=== PATIENT | male | born 1965 | race Caucasian/White ===

== ENCOUNTER 2016-10-15 10:33 | Emergency (ER) | payer SELFPAY ==
[~2016-10-15] VITALS: Ht 180.3 cm; Wt 117.9 kg
[~2016-10-15 10:33] MED LIST: AUGMENTIN 875 M1 TAB PO; BIAXIN500 MG PO; COMPAZINE10 MG PO; DAYPRO600 M1 PO; FLAGYL500 MG PO; FLEXERIL10 MG PO; PAXIL20 MG PO; ROBAXIN750 MG PO; SKELAXIN800 MG PO; TOPROL XL50 MG PO; TRAMADOL HCL50 MG PO; ULTRAM50 MG PO; VICODIN ES 7501 TAB PO; VOLTAREN75 MG PO; ZITHROMAX Z PA250 MG PO; ZYRTEC10 MG PO
[2016-10-15 11:15] LABS: BASO % 0.6 % (0.0-1.0); EOS # 0.2 10*3/uL (0.0-0.4); EOS % 4.7 % (1.0-4.0); HEMATOCRIT 48.7 % (42.0-52.0); HEMOGLOBIN 16.5 g/dl (14.0-18.0); LYMPH # 2.2 10*3/uL (1.3-4.4); LYMPH % 42.9 % (27.0-41.0); MEAN CELL VOLUME 86.2 fl (80.0-94.0); MEAN CORPUSCULAR HGB 29.2 pg (27.0-31.0); MEAN CORPUSCULAR HGB CONC 33.9 g/dl (33.0-37.0); MEAN PLATELET VOLUME 9.2 fl (9.6-12.3); MONO # 0.4 10*3/uL (0.1-1.0); MONO % 7.6 % (3.0-9.0); NEUT # 2.3 10*3/uL (2.3-7.9); PLATELET COUNT AUTOMATED 196 10*3/uL (130-400); RED BLOOD COUNT 5.65 10*6/uL (4.50-5.90); RED CELL DISTRI WIDTH 12.9 % (0-14.5); WHITE BLOOD COUNT 5.2 10*3/uL (4.8-10.8)
[2016-10-15 11:33] LABS: ALBUMIN 3.8 gm/dl (3.1-4.5); ALKALINE PHOSPHATASE 82 U/L (45-117); BILIRUBIN, TOTAL 0.7 mg/dl (0.2-1.0); BUN 14 mg/dl (7-24); CARBON DIOXIDE 29 mmol/L (21-32); CHLORIDE 103 mmol/L (98-107); EST GLOM FILT AFRICAN AMERICAN > 60 ml/min; GLUCOSE 258 mg/dL (65-99); POTASSIUM 4.3 mmol/L (3.5-5.1); SGOT/AST 40 IU/L (3-35); SGPT/ALT 69 U/L (12-78); SODIUM 138 mmol/L (136-145); TOTAL PROTEIN 7.6 gm/dL (6.4-8.2)
[2016-10-15] MEDS ORDERED: CEPHALEXIN500 M1 PO (11:59)
[2016-10-15] MEDS ORDERED: ZESTRIL20 MG PO (12:35)
== END 2016-10-15 12:28 | disposition home or self-care (01) ==
LOC: ED 10:33
PROVIDERS: Registered Nurse
DX: L03.012 Cellulitis of left finger (principal); I10 Essential (primary) hypertension; Z98.890 Other specified postprocedural states; Z79.899 Other long term (current) drug therapy

== ENCOUNTER 2016-10-21 16:47 | Emergency (ER) | payer SELFPAY ==
[~2016-10-21] VITALS: Wt 117.9 kg
[~2016-10-21 16:47] MED LIST changes: +CEPHALEXIN500 M1 PO; +ZESTRIL20 MG PO
[2016-10-21] MEDS ORDERED: CEPHALEXIN500 M1 PO (18:47)
== END 2016-10-21 19:03 | disposition home or self-care (01) ==
LOC: ED 16:47
DX: L03.012 Cellulitis of left finger (principal); E11.65 Type 2 diabetes mellitus with hyperglycemia; I10 Essential (primary) hypertension; Z91.19 Patient's noncompliance with other medical treatment and regimen

== ENCOUNTER 2023-06-12 16:47 | Emergency (ER) | payer OTHER ==
[~2023-06-12] VITALS: Ht 180.3 cm; Wt 108.9 kg
[2023-06-12] MEDS ORDERED: CYCLOBENZAPRINE5 M3 PO (17:20)
[2023-06-12] MEDS ORDERED: MELOXICAM15 MG PO (17:20)
== END 2023-06-12 17:55 | disposition home or self-care (01) ==
LOC: ED 16:47
DX: S43.402A Unspecified sprain of left shoulder joint, initial encounter (principal); F32.A Depression, unspecified; I10 Essential (primary) hypertension; Z98.890 Other specified postprocedural states; V49.9XXA Car occupant (driver) (passenger) injured in unspecified traffic accident, initial encounter; Y93.89 Activity, other specified; Y92.410 Unspecified street and highway as the place of occurrence of the external cause; Y99.8 Other external cause status

== ENCOUNTER 2023-07-20 15:26 | Emergency (ER) | payer SELFPAY ==
[~2023-07-20] VITALS: Ht 180.3 cm; Wt 108.9 kg
[~2023-07-20 15:26] MED LIST changes: +CYCLOBENZAPRINE5 M3 PO; +MELOXICAM15 MG PO
== END 2023-07-20 21:26 | disposition left against medical advice (07) ==
LOC: ED 15:26
DX: M25.562 Pain in left knee (principal); Z53.21 Procedure and treatment not carried out due to patient leaving prior to being seen by health care provider